=== PATIENT | female | born 1985 | race Caucasian/White ===

== ENCOUNTER 2021-05-27 23:05 | Emergency (ER) | payer BC, SELFPAY ==
[2021-05-27 23:11] VITALS: BP 167/109; PULSE 78; RESP 18; TEMP 36.4; O2SAT 98
--- NOTE | 2021-05-27 23:13 | ED.GENADUL_ITS ---
Discharge Plan Disposition Patient Disposition: HOME Condition: Good Discharge Details Clinical Impression: No problem, feared complaint unfounded Primary Care Provider: Humza Rosenberg ED Provider: Henry Perez Meds and New Rx's Prescriptions: No Action norgestimate-ethinyl estradiol [Tri-Sprintec (28)] 0.18/0.215/0.25 mg-35 mcg (28) Tablet 1 tab PO DAILY RF: 0 Discharge Instructions Additional Instructions: Your BMP (includes potassium) was normal. Follow up with PCP as planned. Discharge Data Discharge Date/Time-TO BE ENTERED AT DEPARTURE: 05/28/21 00:15 Medical Decision Making Patient very upset and crying. Apparently, whomever she spoke with tonight told her she was at risk for dying. I reassured her that this likely was just lab error and related to hemolysis. We were unable to obtain the official lab results and therefore diane a full BMP which came back completely normal which is what I would expect with an otherwise healthy 35-year-old. Patient reassured and told to follow-up with primary care as previously scheduled. HPI General Mode of arrival: ambulatory . Date/Time Provider Initiated Documentation: 05/27/21 23:08 . Limitations to Documentation: no limitations . Information obtained by: patient and RN notes reviewed . HPI Narrative: Patient presents to ED on advice of her PCP who called her this evening around 10. She has been seen yesterday for low abdominal and back pain. This is since resolved and she has been feeling fine. Laboratory studies were done yesterday. This evening she was told to come to the ED immediately because her potassium was 7.2. She has no this complaint tonight. Her pain has resolved. She has no palpitations, chest pain, shortness of breath, fever, vomiting, diarrhea. Related Data Home Medications Medication Instructions Recorded Confirmed norgestimate-ethinyl estradiol 1 tab PO DAILY 05/27/21 05/27/21 [Tri-Sprintec (28)] Allergies Allergy/AdvReac Type Severity Reaction Status Date / Time No Known Allergies Allergy Unverified 05/27/21 23:14 Review of Systems Narrative: As documented in HPI otherwise negative as below. Const: no fever, chills, weakness Resp: no cough, SOB, pleuritic pain CV: no CP, diaphoresis, edema, syncope GI: no abdominal pain, nausea, vomiting, diarrhea Neuro: no headache, numbness, focal weakness, confusion [facility] Medical History No significant past medical history Surgical History No significant past surgical history Social History Smoking/Tobacco Use Status: Never Smoking risk assessment performed?: Yes Alcohol Intake: current Substance use type: does not use Do you feel safe at home: Yes Do you feel safe in your relationship?: Yes Exam Narrative Exam Narrative: Const: WDWN female in NAD. HEENT: NC/AT. Normal facial exam. Eyes: Normal conjunctiva and sclera. Neck: Supple. Trachea midline. Lungs: Normal respiratory effort. Neuro: A+O x 3. Normal speech, mentation, gait. Cranial nerves II - XII grossly intact. No gross motor or sensory deficit. Ext: No C/C/E. Skin: Warm and dry without rash.
[2021-05-27 23:41] LABS: Anion Gap 7.5 mmol/L (3-11); BUN 11 mg/dL (7-18); CO2 27.5 mmol/L (21.0-32.0); CREATININE 0.7 mg/dL (0.55-1.02); Calcium 8.9 mg/dL (8.5-10.1); Chloride 105 mmol/L (98-107); Glucose 98 mg/dL (74-106); Potassium 3.7 mmol/L (3.5-5.1); Sodium 140 mmol/L (136-145)
== END 2021-05-28 00:15 | disposition home or self-care (01) ==
LOC: ER 05-28 00:27
PROVIDERS: Emergency Provider Emergency Medicine; PCP Family Medicine
DX: E87.5 Hyperkalemia (principal); Z71.1 Person with feared health complaint in whom no diagnosis is made
CPT/HCPCS: 80048; 99281; 99282; J2270

== ENCOUNTER 2023-05-30 03:00 | Outpatient (CLI) | payer BC, SELFPAY ==
[2023-05-30 15:52] LABS: Panorama Kit Sent via Fed Ex
[2023-05-30 15:55] LABS: Abs Immature Grans 0.07 10^3/uL (0.0-0.06); Absolute Basophil Count 0.06 10^3/uL (0.0-0.2); Absolute Eosinophil Count 0.13 10^3/uL (0.0-0.7); Absolute Monocyte Count 0.91 10^3/uL (0.1-0.8); Basophils % 0.5; Eosinophils % 1.1; HGB 12.5 g/dL (11.2-15.7); Immature Grans % 0.6; Lymphocytes % 22.8; MCH 26.4 pg (27.0-33.0); MCHC 32.1 % (32.0-36.0); MCV 83 fL (80-95); MPV 9.3 fL (8.0-11.0); Monocytes % 7.4; Neutrophils % 67.6; Platelet Count 411 10^3/uL (130-400); RBC 4.73 10^6/uL (3.93-5.22); RDW 13.2 % (11.7-14.6); RDW-SD 40.1 fL; WBC 12.26 10^3/uL (4.4-10.8)
[2023-05-30 15:57] LABS: Absolute Neutrophil Count 8.29 10^3/uL (1.2-6.7)
[2023-05-30 16:05] LABS: Glucose,1 Hr (Glucola) 97 mg/dL (80-140)
[2023-05-31 10:44] LABS: Rubella IgG Ab (UVM) Negative (See Note)
[2023-05-31 11:18] LABS: Hepatitis B Surface Ag Negative (Negative)
[2023-05-31 11:56] LABS: HIV-1/2 Ag & Ab Screen Negative (Negative)
[2023-05-31 12:03] LABS: Varicella IgG Antibody Equivocal (See Note)
[2023-05-31 12:12] LABS: Hepatitis C Ab w Rflx HCV PCR Negative (Negative)
[2023-05-31 19:33] LABS: Syphilis IgG w/Reflex Nonreactive (Nonreactive)
== END 2023-05-30 03:01 | disposition home or self-care (01) ==
PROVIDERS: PCP Family Medicine; Visit Provider Advanced Practice Midwife
DX: O09.511 Supervision of elderly primigravida, first trimester
CPT/HCPCS: 36415; 82950; 86787; 86803; 86850; 86900; 86901; 87340; 87389; 85025; 86762; 86780

== ENCOUNTER 2023-05-30 15:42 | Outpatient (REF) | payer BC, SELFPAY ==
[2023-05-30 18:36] LABS: *AMPHETAMINES SCREEN URINE Negative (Negative); *BARBITURATES SCREEN URINE Negative (Negative); *BENZODIAZEPINES SCREEN URINE Negative (Negative); Cannabinoids THC Negative (Negative); Cocaine Screen,Urine Negative (Negative); METHADONE URINE SCREEN Negative (Negative); OPIATES URINE SCREEN Negative (Negative)
[2023-05-30 18:42] LABS: Tricyclic Antidepressants Negative (Negative)
[2023-06-01 13:34] LABS: Chlamydia Result Negative (Negative); GC Result Negative (Negative)
[2023-06-06 12:19] LABS: Buprenorphine Negative ng/mL (Cutoff: 5.0); Norbuprenorphine Negative ng/mL (Cutoff: 2.5)
== END 2023-05-30 15:43 | disposition home or self-care (01) ==
LOC: LBN 15:42
PROVIDERS: PCP Family Medicine; Visit Provider Advanced Practice Midwife
DX: Z34.91 Encounter for supervision of normal pregnancy, unspecified, first trimester
CPT/HCPCS: 80307; 80348; 87491; 87591; 87086

== ENCOUNTER 2023-07-21 16:31 | Outpatient (REF) | payer BC, SELFPAY ==
[2023-07-21 16:54] LABS: Bilirubin Negative (Negative); Blood Small (Negative); Clarity Clear (Clear); Glucose Negative (Negative); Ketones Negative (Negative); Leukocyte Esterase Negative (Negative); Nitrite Negative (Negative); Specific Gravity 1.015 (1.005-1.025); Urobilinogen 0.2 mg/dL (Up to 0.2)
[2023-07-21 17:10] LABS: Bacteria Negative HPF (Negative); C & S Indicated? C&S Done As Ordered; Crystals Negative HPF (Negative); Epithelial Cells Rare HPF (Negative); Mucus Negative (Negative); WBC 0-2 HPF (0-5)
== END 2023-07-21 16:32 | disposition home or self-care (01) ==
LOC: LBN 16:31
PROVIDERS: PCP Family Medicine; Visit Provider Advanced Practice Midwife
DX: R31.9 Hematuria, unspecified (principal)
CPT/HCPCS: 81003; 81015; 87086

== ENCOUNTER 2023-09-11 17:08 | Outpatient (REF) | payer BC, SELFPAY | END 2023-09-11 17:09 | disposition home or self-care (01) | LOC: LBN 17:08 | PROVIDERS: PCP Family Medicine; Visit Provider Obstetrics & Gynecology Gynecology | DX: N20.0 Calculus of kidney (principal); R31.9 Hematuria, unspecified | CPT/HCPCS: 87077; 82365; 87086; 87186 ==

== ENCOUNTER 2023-09-12 23:36 | Emergency (ER) | payer BC, SELFPAY ==
[2023-09-12 23:45] VITALS: BP 150/80; PULSE 140; RESP 20; TEMP 39.4; O2SAT 97
[2023-09-13] MEDS: Cefepime 2 GM VIAL (00:09)
[2023-09-13] MEDS: Normal Saline 100 ML 200 ML (00:10)
[2023-09-13] MEDS: Normal Saline 1,000 ML 1000 ML IV (00:11)
--- NOTE | 2023-09-13 00:15 | ED.GENADUL_ITS ---
HPI General Date/Time Provider Initiated Documentation: 09/12/23 23:46 . HPI Narrative: This is a very pleasant G1, P0 37-year-old female who is currently 26 weeks who presents today for evaluation of fever and right flank pain. Patient states that 3 days ago on Monday she developed sudden severe right flank pain, she had a urine filter at home secondary to suspected previous kidney stones. She urinated and collected multiple small stones. Flank pain improved but persisted. She was seen by obstetrics on Monday and she was noted to be quite tired and fatigued at that time but otherwise the urinalysis was negative for evidence of infection and it was sent for culture and she appropriately went home with close monitoring. 12 hours ago on Monday her symptoms worsened, she developed fever, chills, and rigors. Right flank pain continued. She was started on Keflex for which she has taken 2 doses, and she was scheduled for close follow-up later today. This evening she presents as she is feeling notably worse, very fatigued, continues to have worsening chills and rigors and worsening right-sided flank pain. She denies any vomiting or diarrhea. She denies a severe headache or neck pain. She denies any cough, ear pain, sore throat. She denies any other complaints at this time. No other modifying factors. Related Data Home Medications Medication Instructions Recorded Confirmed vitamins no.154-ferrous tab PO 04/27/23 09/12/23 fumarate 27 mg-folic acid 1 mg tablet aspirin 81 mg chewable tablet 81 mg PO DAILY #60 tabs 05/30/23 09/12/23 cephalexin 500 mg capsule 500 mg PO TID #15 caps 09/12/23 09/12/23 Previous Rx's Medication Instructions Recorded aspirin 81 mg chewable tablet 81 mg PO DAILY #60 tabs 05/30/23 cephalexin 500 mg capsule 500 mg PO TID #15 caps 09/12/23 Allergies Allergy/AdvReac Type Severity Reaction Status Date / Time lobster AdvReac Other (See Uncoded 09/11/23 14:44 Comment) General Stated Complaint: Fever QUINN: 3 Review of Systems All systems reviewed & are unremarkable except as noted in HPI and below Exam Narrative Exam Narrative: 1.Const: Well-nourished, Well-developed, appearing stated age 2.Eyes: PERRL, no conjunctival injection, and symmetrical lids. 3.ENT: Atraumatic external nose and ears. Dry MM. Neck: Symmetric, trachea midline, No thyromegaly. No nuchal rigidity or significant neck tenderness 4.CVS: +S1/S2, No murmurs or gallops. Peripheral pulses 2+ and equal in all extremities. Brisk capillary refill in all extremities. 5.RESP: Unlabored respiratory effort. Clear to auscultation bilaterally. No wheezes rales or rhonchi 6.GI: Soft, appropriately gravid. Moderate right CVA tenderness. No right lower abdominal tenderness. Right flank tenderness is noted. No left-sided abdominal tenderness. 7.MSK: Normocephalic/Atraumatic, Extremities w/o deformity or ttp No cyanosis or clubbing, Normal movement of all extremities 8.Skin: Warm, Dry. No rashes or lesions. 9.Neuro: office coordinator receptionist II-XII grossly intact. Sensation grossly intact, no focal neurologic deficits. 10.Psych: (AAO) x3. Appropriate mood and affect Course Vital Signs Vital signs: Vital Signs Temperature 39.4 C H 09/12/23 23:45 Pulse 140 H 09/12/23 23:45 Respiratory Rate 20 09/12/23 23:45 Blood Pressure 150/80 H 09/12/23 23:45 Pulse Oximetry 97 09/12/23 23:45 Temperature 39.4 C H 09/12/23 23:45 Temperature Source Oral 09/12/23 23:45 Pulse 140 H 09/12/23 23:45 Respiratory Rate 20 09/12/23 23:45 Blood Pressure 150/80 H 09/12/23 23:45 Pulse Oximetry 97 09/12/23 23:45 Oxygen Delivery Method Room Air 09/12/23 23:45 Oxygen Flow Rate 0 09/12/23 23:45 Pain Level 0 09/12/23 23:45 Lab/Test Results Lab/Test Results: 09/13/23 00:10 Blood Blood Culture - Pending 09/13/23 00:04 Blood Blood Culture - Pending Medical Decision Making This is a very pleasant G1, P0 37-year-old female who is currently 26 weeks who presents today for evaluation of fever and right flank pain. Patient states that 3 days ago on Monday she developed sudden severe right flank pain, she had a urine filter at home secondary to suspected previous kidney stones. She urinated and collected multiple small stones. Flank pain improved but persisted. She was seen by obstetrics on Monday and she was noted to be quite tired and fatigued at that time but otherwise the urinalysis was negative for evidence of infection and it was sent for culture and she appropriately went home with close monitoring. 12 hours ago on Monday her symptoms worsened, she developed fever, chills, and rigors. Right flank pain continued. She was started on Keflex for which she has taken 2 doses, and she was scheduled for close follow-up later today. This evening she presents as she is feeling notably worse, very fatigued, continues to have worsening chills and rigors and worsening right-sided flank pain. She denies any vomiting or diarrhea. She denies a severe headache or neck pain. She denies any cough, ear pain, sore throat. She denies any other complaints at this time. No other modifying factors. Exam demonstrates notable right-sided CVA tenderness. Heart rate initially in the 160s, now currently in the 140s, blood pressure demonstrates an elevated pressure at 150/80, we will reassess this. She does not fit the expected clinical picture of help syndrome or eclampsia. She is febrile. High concern for potential septic stone. Appendicitis less likely but on the differential. Patient will be rehydrated with fluid bolus starting with a liter, we will start the patient on cefepime right now. We will give Ofirmev for fever control. We did attempt to reach out to the urologist at the facility here, but it is midnight and he is not currently reachable by phone. With the high potential concern for septic stone or pyelonephritis, we will reach out to [facility] for potential transfer for emergent ultrasonography, and potential need for urologic intervention. 12:51 AM Blood pressure has normalized. Heart rate improving. No transaminitis. Patient's laboratory workup has returned, she has a 17 white count, notable left shift. Lactate normal. Review of her urine culture shows greater than 100,000 gram-positive CFU's contacted [facility] and spoke with urology Dr. Steen, he recommends transfer down for emergent ultrasound and potential intervention. Discussed the case with Dr. Wetzel of the emergency department he agrees and accepts patient for transfer. Urology does recommend transitioning to Zosyn for better gram-positive coverage. Cefepime has finished, Zosyn started. Limited bedside POCUS demonstrates a right kidney with a length of 13 cm and a width of 6 cm, left kidney is measured at 12/4 cm respectively. Right kidney does seem to demonstrate some mild evidence of hydronephrosis. Discussed the plan, scenario, and need for transfer with the patient, patient agrees. I have extensively reviewed the treatment plan with the patient. I have addressed all patient concerns at this time. I have also discussed the plan with the admitting physician and they agree with the current assessment and plan and have agreed to assume responsibility for the patient. All parties demonstrate verbal understanding and agreement with our assessment and plan at this time. The documentation in this chart was dictated using [employer] dictation software. Please excuse any dictation errors. At time of transfer the patient was reassessed and continued to demonstrate No signs of acute respiratory distress requiring intubation, hemodynamic instability requiring pressor support, or rapidly declining mental status. Additionally laboratory workup came back and did show urinalysis with greater than 50 WBCs, moderate leuk esterase, procalcitonin elevated at 0.2. Renal function normal. Potassium slightly low at 3.3. Lactate was 1.2. Quality:[facility] Health Related Social Needs: No Data to Display Critical Care Time Critical Care Time Critical Care Time: Yes Total Critical Care Time: 60 Attestation: Upon my evaluation, this patient had a high probability of imminent or life- threatening deterioration, which required my direct attention, intervention, and personal management. I have personally provided 60 minutes of critical care time exclusive of time spent on separately billable procedures. Time includes review of laboratory data, radiology results, discussion with consultants, and monitoring for potential decompensation. Interventions were performed as documented. [facility] All Active Problems (Updated 09/13/23 @ 01:33 by Shakir Jackson DO) Pyelonephritis (Acute) Kidney stone (Chronic) Sepsis (Acute) Fever (Acute) 09/12/23. 24hrs after passing kidney stones. UCx pending Nephrolithiasis (Chronic) 09/11/23. Stones sent for analysis. Hematuria (Acute) Maternal varicella, non-immune (Acute) Elderly primigravida (Acute) (Acute) Surgical History No significant past surgical history Social History Smoking/Tobacco Use Status: Never Smoking risk assessment performed?: Yes Alcohol Intake: current Substance use type: does not use Housing: house Do you feel safe at home: Yes Do you feel safe in your relationship?: Yes History History 1 Para 0 Hx # Term Pregnancies 0 Multiple births 0 Hx # Pregnancies 0 Ectopic pregnancies 0 AB induced 0 Hx Number of Living Children 0 AB spontaneous 0 Discharge Plan Disposition Patient Disposition: Transfer-Acute Inpatient Care Specific Acute Inpt Facility: [facility] Discharge Details Chief Complaint: Fever Clinical Impression: Sepsis, Kidney stone, Pyelonephritis Primary Care Provider: Humza Rosenberg ED Provider: Shakir Jackson Home Meds and New Rx's Prescriptions: No Action cephalexin 500 mg capsule 500 mg PO TID Qty: 15 0RF PNV no.154-iron fumarate-folic 27 mg iron- 1 mg tablet PO aspirin 81 mg tablet,chewable 81 mg PO DAILY Qty: 60 4RF Rx Instructions: 1 tab daily alternating with 2 tabs every other day Discharge Instructions Referrals: Humza Rosenberg [Primary Care Provider] - Lillian Mercado MD [ [facility] STAFF PHYSICIAN] - POCUS Exam (ED) Limited Retroperitoneal(Renal)Exam DATE OF EXAM: 09/13/23 TIME OF EXAM: 00:53 PROVIDER THAT PERFORMED THE STUDY: Shakir Jackson IS THIS A REPEAT EXAM DURING THIS ENCOUNTER: No REASON FOR EXAM: Back pain/right side VISUALIZED STRUCTURES: Left kidney, Right kidney, Renal pelvis,left side and Renal pelvis, right side PERTINENT FINDINGS/IMPRESSION: Hydronephrosis present right side Exam complete
[2023-09-13 00:19] LABS: Lactate 1.2 mmol/L (0.6-1.4)
[2023-09-13 00:23] LABS: Abs Immature Grans 0.16 10^3/uL (0.0-0.06); Absolute Lymphocyte Count 1.05 10^3/uL (1.2-3.4); Absolute Monocyte Count 0.96 10^3/uL (0.1-0.8); Basophils % 0.2; HCT 31.7 % (36.0-46.0); HGB 10.7 g/dL (11.2-15.7); Immature Grans % 0.9; Lymphocytes % 6.1; MCH 27.5 pg (27.0-33.0); MCHC 33.8 % (32.0-36.0); MCV 82 fL (80-95); MPV 9.3 fL (8.0-11.0); Monocytes % 5.6; Neutrophils % 87.2; Platelet Count 287 10^3/uL (130-400); RBC 3.89 10^6/uL (3.93-5.22); RDW 13.3 % (11.7-14.6); RDW-SD 39.5 fL; WBC 17.14 10^3/uL (4.4-10.8)
[2023-09-13 00:25] LABS: Absolute Basophil Count 0.03 10^3/uL (0.0-0.2); Absolute Neutrophil Count 14.95 10^3/uL (1.2-6.7)
[2023-09-13 00:36] LABS: ALT 25 U/L (14-59); AST 16 U/L (15-37); Albumin 2.7 g/dL (3.4-5.0); Alkaline Phosphatase 68 U/L (46-116); Anion Gap 13.9 mmol/L (3-11); BUN 4 mg/dL (7-18); Bilirubin, Total 0.3 mg/dL (0.2-1.0); CO2 21.1 mmol/L (21.0-32.0); CREATININE 0.7 mg/dL (0.55-1.02); Calcium 8.7 mg/dL (8.5-10.1); Chloride 98 mmol/L (98-107); Estimated GFR 115.59 (mL/min/1.73m2); Glucose 147 mg/dL (74-106); Potassium 3.3 mmol/L (3.5-5.1); Sodium 133 mmol/L (136-145); Total Protein 7.5 g/dL (6.4-8.2)
[2023-09-13] MEDS: PIPERACILLIN/TAZO 4.5 GM in Normal Saline 100 ML IVPB (00:40)
[2023-09-13] MEDS: ACETAMINOPHEN 1,000 MG/100 ML BTL 400 MG IVPB (00:40)
[2023-09-13 00:44] VITALS: BP 123/69; PULSE 129; RESP 18; TEMP 39.4; O2SAT 98
--- NOTE | 2023-09-13 00:47 | NUR.NOTE ---
Nursing Note:pt to the ED,+26 wks preg. pt recently passed a few kidney stones and was placed on abx, today she felt worse. High fevers and chills. pt arrived a+ox4, labs including urine sent. pt IV established. X@ bld cultures and x2 IVabx infused. pt to be transferred to [facility]
[2023-09-13 00:58] LABS: Bilirubin Negative (Negative); Blood Trace-intact (Negative); Clarity Sl Cloudy (Clear); Glucose Negative (Negative); Ketones Trace mg/dL (Negative); Leukocyte Esterase Moderate (Negative); Nitrite Negative (Negative); Urobilinogen 0.2 mg/dL (Up to 0.2); pH 6.5 (5-8)
[2023-09-13 01:00] LABS: COVID-19 PCR Negative (Negative); Influenza A PCR Negative (Negative); Influenza B PCR Negative (Negative); RSV PCR Negative (Negative)
[2023-09-13 01:02] LABS: Source Nasopharynx
[2023-09-13 01:04] LABS: Bacteria Moderate HPF (Negative); Crystals Negative HPF (Negative); Epithelial Cells Few HPF (Negative); Mucus Trace (Negative); Other Cells Few Transitional (Negative); WBC >50 HPF (0-5)
[2023-09-13 01:05] LABS: C & S Indicated? C&S Done As Ordered
[2023-09-13 01:06] LABS: Procalcitonin 0.2 ng/mL
[2023-09-13 01:15] VITALS: BP 120/62; PULSE 122; RESP 18; TEMP 37.9; O2SAT 100
[2023-09-13 01:35] LABS: HCG Quant, Pregnancy 18519 mIU/mL (1-3)
--- NOTE | 2023-09-13 12:21 | NUR.NOTE ---
[facility] called for urine culture results; they are not done. Nursing Note:
== END 2023-09-13 01:36 | disposition short-term general hospital (02) ==
PROVIDERS: Emergency Provider Student in an Organized Health Care Education/Training Program; PCP Family Medicine
DX: N20.0 Calculus of kidney (principal); O23.02 Infections of kidney in pregnancy, second trimester; Z3A.26 26 weeks gestation of pregnancy; Z11.52 Encounter for screening for COVID-19; Z79.82 Long term (current) use of aspirin
CPT/HCPCS: 76775; 80053; 84145; 86850; 86900; 86901; 87040; 87637; 96365; 96367; 96375; 99284; 81003; 81015; 83605; 84702; 85025; 87086; J0131; J0692; J2543

== ENCOUNTER 2023-09-25 05:01 | Outpatient (CLI) | payer BC, SELFPAY ==
[2023-09-25 09:17] LABS: HCT 34.1 % (36.0-46.0); HGB 11.3 g/dL (11.2-15.7); MCH 27.4 pg (27.0-33.0); MCHC 33.1 % (32.0-36.0); MCV 83 fL (80-95); MPV 8.9 fL (8.0-11.0); Platelet Count 431 10^3/uL (130-400); RBC 4.12 10^6/uL (3.93-5.22); RDW 13.4 % (11.7-14.6); RDW-SD 40.3 fL; WBC 9.41 10^3/uL (4.4-10.8)
[2023-09-25 09:28] LABS: Glucose,1 Hr (Glucola) 160 mg/dL (80-140)
== END 2023-09-25 05:02 | disposition home or self-care (01) ==
LOC: LBO 05:02
PROVIDERS: PCP Family Medicine; Visit Provider Obstetrics & Gynecology Gynecology
DX: Z34.93 Encounter for supervision of normal pregnancy, unspecified, third trimester (principal)
CPT/HCPCS: 36415; 82950; 85027

== ENCOUNTER 2023-10-06 02:32 | Outpatient (CLI) | payer BC, SELFPAY ==
[2023-10-06 09:33] LABS: Glucose 1 Hour 175 mg/dL
[2023-10-06 11:40] LABS: Glucose 3 Hour 102 mg/dL
== END 2023-10-06 02:33 | disposition home or self-care (01) ==
LOC: LBO 02:32
PROVIDERS: PCP Family Medicine; Visit Provider Obstetrics & Gynecology Gynecology
DX: R73.09 Other abnormal glucose (principal)
CPT/HCPCS: 36415; 82951

== ENCOUNTER 2023-11-10 16:24 | Outpatient (CLI) | payer BC, SELFPAY ==
[2023-11-10 16:50] VITALS: BP 120/71; PULSE 68
[2023-11-10 16:59] VITALS: BP 120/71; PULSE 68
--- NOTE | 2023-11-10 17:15 | W.OBNST ---
Date of service: 11/10/23 Time of Service: 16:30 NST Evaluation Reason for NST Reasons for Nonstress Test: OTHER, SEE COMMENT Reason for NST Other: Well-being, sent over from office Gestational Age Gestational Age in Weeks and Days: 34 Weeks and 6Days Test and Monitor Explained Test/Monitor Explained: Test Explained, Monitor Explained and Patient Verbalized Understanding Vital Signs Blood Pressure: 120/71 Pulse: 68 Urine Results Urine Protein: Negative Urine Ketones: Negative Urine Glucose: Negative Urine Blood: Negative NST Information Date on Monitor: 11/10/23 Time on Monitor: 16:32 Date off Monitor: 11/10/23 Time off Monitor: 16:53 Total Time on Monitor: 21 NST Interventions: None Contraction Frequency: None NST Evaluation Patient States Movement: Present FHR Baseline: 125 Variability: Moderate 6-25 bpm Accelerations: 15x15 Decelerations: None NST Results: Reactive Note Ultrasound Done: N/A. NST Note NST Reviewed and Verified by: Shira Fay
[2023-11-10 17:16] VITALS: BP 120/71; PULSE 68
== END 2023-11-10 16:55 ==
LOC: BCD 16:25 → OBS 16:27
PROVIDERS: PCP Family Medicine; Visit Provider Obstetrics & Gynecology
DX: O36.8331 Maternal care for abnormalities of the fetal heart rate or rhythm, third trimester, fetus 1 (principal); Z3A.34 34 weeks gestation of pregnancy
CPT/HCPCS: 59025

== ENCOUNTER 2023-11-22 18:55 | Outpatient (REF) | payer BC, SELFPAY | END 2023-11-22 18:56 | disposition home or self-care (01) | LOC: LBN 18:55 | PROVIDERS: PCP Family Medicine; Visit Provider Obstetrics & Gynecology | DX: Z34.93 Encounter for supervision of normal pregnancy, unspecified, third trimester (principal); Z3A.36 36 weeks gestation of pregnancy; Z36.85 Encounter for antenatal screening for Streptococcus B | CPT/HCPCS: 87081 ==

== ENCOUNTER 2023-12-18 20:00 | Inpatient (IN) | payer BC, SELFPAY ==
[2023-12-18 20:29] VITALS: BP 126/70; PULSE 80; RESP 16; TEMP 37.5
[2023-12-18 21:03] LABS: HCT 35.5 % (36.0-46.0); HGB 11.7 g/dL (11.2-15.7); MCH 27.7 pg (27.0-33.0); MCV 84 fL (80-95); Platelet Count 276 10^3/uL (130-400); RBC 4.23 10^6/uL (3.93-5.22); RDW-SD 43.1 fL; WBC 10.76 10^3/uL (4.4-10.8)
[2023-12-18] MEDS: miSOPROStol 25 MCG TAB PO (21:52)
--- NOTE | 2023-12-18 21:55 | HPE_ITS ---
Date of service: 12/18/23 Time of Service: 21:55 Assessment and Plan Assessment and plan (1) Encounter for induction of labor: Status: Acute Assessment and plan: Admission for Misoprostol cervical ripening. (2) Nephrolithiasis: Status: Chronic (3) Elderly primigravida: Status: Acute Qualifiers: Trimester: third trimester Qualified Code(s): O09.513 - Supervision of elderly primigravida, third trimester OB-HPI Labor/Delivery History of Present Illness Reason for Visit: iup 40w2d EGA Chief Complaint: Scheduled Induction of Labor Indication for Induction: Other (AMA). KEILA Calculator Estimated Delivery Date Method Current WG Current Estimate 12/16/23 Ultrasound #1 40w 2d Other Estimates 12/22/23 LMP (Certain) 39w 3d History of Present Expected Delivery Route/Plan - (hx stones & pylo) FOB/ - Amadeo Monreal (first child) Specific Issues/Plan 1. AMA: low dose ASA @ 12 wks, [facility] level 2 scan w/MFM consult- normal US - cfDNA drawn- neg, CF/SMA declined - Early glucola = 97 2. Varicella non immune- discuss with Vandana, offer vaccine post partum____ 3. Nephrolithiasis 09/11/23. Collected stones: 100% Calcium Oxalate. Pyelonephritis in . Hospitalized at [facility] x 3 days. - Daily Macrobid throughout the remainder of her . Narrative: Pt is a 38yo female who presents for IOL at term. She was counseled regarding Misoprostol for cervical ripening followed by augmentation of labor with Oxytocin. Pt has had total of 13 visits. S=D. 1st trimester BP122/83, 3rd trimester BP 188/79. Rh+. Informed Consent Informed Consent: Augmentation of Labor, Induction of Labor, Regional Anesthesia and Risk,Benefits,Alternatives Discussed Review of Systems Narrative: Occasional contractions. No increased vaginal discharge. Good movement. All systems reviewed & are unremarkable except as noted in HPI and below PFSH All Active Problems (Updated 12/18/23 @ 22:28 by Lillian Mercado MD) Encounter for induction of labor (Acute) Elevated glucose level (Acute) Fever (Acute) 09/12/23. 24hrs after passing kidney stones. UCx pending Nephrolithiasis (Chronic) 09/11/23. Stones sent for analysis. Hematuria (Acute) Maternal varicella, non-immune (Acute) Elderly primigravida (Acute) (Acute) Surgical History No significant past surgical history Social History Smoking/Tobacco Use Status: Never Smoking risk assessment performed?: Yes Alcohol Intake: current Drug use: Never Substance use type: does not use Housing: house Do you feel safe at home: Yes Do you feel safe in your relationship?: Yes History History 1 Para 0 Hx # Term Pregnancies 0 Multiple births 0 Hx # Pregnancies 0 Ectopic pregnancies 0 AB induced 0 Hx Number of Living Children 0 AB spontaneous 0 Meds Allergies and Home Medications Allergies Allergy/AdvReac Type Severity Reaction Status Date / Time lobster AdvReac Other (See Uncoded 12/07/23 10:55 Comment) Home Medications Medication Instructions Recorded Confirmed Type aspirin 81 mg chewable tablet 81 mg PO DAILY #60 tabs 05/30/23 12/18/23 Rx ferrous sulfate 325 mg (65 mg 325 mg PO DAILY 09/25/23 12/18/23 History iron) tablet (Iron (ferrous sulfate)) nitrofurantoin 100 mg PO BID 09/25/23 12/18/23 History monohydrate/macrocrystals 100 mg capsule (Macrobid) nitrofurantoin 100 mg PO DAILY #60 caps 09/25/23 12/18/23 Rx monohydrate/macrocrystals 100 mg capsule (Macrobid) lactobacillus combination no.4 3 3,000 mmu cells PO DAILY 11/10/23 12/18/23 History billion cell capsule (Probiotic) vits no.130-ferrous fum 1 tab PO DAILY #90 tabs 11/22/23 12/18/23 Rx 27 mg iron-folic acid 800 mcg tablet ( Vitamin) Exam Physical Exam Vital signs: Temp Pulse Resp BP 99.5 F 80 16 126/70 12/18/23 20:29 12/18/23 20:29 12/18/23 20:29 12/18/23 20:29 Vital Signs Reviewed: Yes Constitutional Constitutional: no acute distress Detailed Labor and Delivery Exam Dilation: 1 Effacement (%): 75 station: 0 Cervix position: posterior Consistency: soft Hinds Score: Cervical Points Exam 0 1 2 3 Dilation Closed 1-2cm 3-4 cm 5-6cm Effacement 0-30% 40-50% 60-70% 80% Consistency Firm Medium Soft Station -3 -2 -1,0 +1,+2 Position Posterior Mid Anterior HINDS Score(Cervical Ripeness Score): 8 Amniotic Membrane Status: Intact Monitor Mode: External Contraction Frequency(min): occasional Contraction Duration(sec): 40 Contraction Intensity: Mild Fetus A Heart Rate Baseline: 140 Monitor Accelerations: 15 X 15 Monitor Decelerations: None Variability: Moderate (6-25 BPM) Presentation: Cephalic Categories: Category I Est. Weight: 3300 lb Results Results Group Beta Strep: Negative Blood Type: A+ Rubella Status: Immune Varicella Immunity: Nonimmune Abnormal Lab Findings: Abnormal Labs 12/18/23 20:52 Hct 35.5 L Risk Assessment Risk for Shoulder Dystocia Historical/Initial OB: NEGATIVE FOR: Pelvic Abnormality, Pre- BMI>30, Previous Shoulder Dystocia or Previous Macrosomia Increased Risk?: No Risk for Pre-Eclampsia Daily Dose ASA Indicated: Yes Date Initiated/Initials: start @ 12 wks, JK Yes, if one or more: NEGATIVE FOR: Hx Pre-E/Gest HTN, Chronic HTN, Multiple Gestation, Pre-gestational DM, Renal Disease, Systemic Lupus or APA Syndrome Yes, if 2 or more: POSITIVE FOR: Nulliparity and Age>= 35 yrs; NEGATIVE FOR: >10yr btwn pregnancies, BMI>30, ethinicty, Mother/Sister w/ Pre-E or Previous IUGR Risk for Post- Hemorrhage Initial: NEGATIVE FOR: Multiple Gestation, Previous PPH, Known Clotting Deficiency, Grand Multiparity or Anticoagulation At Risk?: No Risks Reviewed Risks Reviewed Upon Admission: Yes
[2023-12-18 22:16] VITALS: BP 115/75; PULSE 66; TEMP 36.6
[2023-12-19] VITALS (17 sets, daily range): BP systolic 109–134; BP diastolic 57–83; PULSE 62–76; RESP 16–18; TEMP 36.4–36.9; O2SAT 97–99
[2023-12-19] MEDS: miSOPROStol 25 MCG TAB PO ×2 (02:09→06:22)
--- NOTE | 2023-12-19 09:35 | W.PM.OBNL1 ---
Date of service: 12/19/23 Time of Service: 09:35 Informed Consent Informed Consent: Augmentation of Labor, Induction of Labor, Regional Anesthesia and Risk,Benefits,Alternatives Discussed Pelvic Exam Dilation: 2 Effacement (%): 75 station: 0 Cervix Position: posterior Consistency: soft Vaginal Exam Presentation: Cephalic Contractions Monitor Mode: External Contraction Frequency(min): 3 Contraction Duration(sec): 60 Intensity: Mild Fetus A Monitor: External (US) Heart Rate Baseline: 140 Presentation: Cephalic Variability: Moderate (6-25 BPM) Categories: Category I FHR Rhythm: Regular Characteristics: Normal Accelerations: 15 X 15 Decelerations: None Amniotic Membrane Status: Intact Assessment and Plan Assessment and plan (1) Encounter for induction of labor: Status: Acute Assessment and plan: will begin Oxytocin infusion. Objective Abnormal lab results 12/18/23 Range/Units 20:52 Hct 35.5 L (36.0-46.0) % Temp Pulse Resp BP 97.9 F 72 16 125/80 12/19/23 06:03 12/19/23 07:17 12/18/23 20:29 12/19/23 07:17 Laboratory Results WBC 10.76 10^3/uL (4.4-10.8) 12/18/23 20:52 RBC 4.23 10^6/uL (3.93-5.22) 12/18/23 20:52 Hgb 11.7 g/dL (11.2-15.7) 12/18/23 20:52 Hct 35.5 % (36.0-46.0) L 12/18/23 20:52 MCV 84 fL (80-95) 12/18/23 20:52 MCH 27.7 pg (27.0-33.0) 12/18/23 20:52 MCHC 33.0 % (32.0-36.0) 12/18/23 20:52 RDW 14.0 % (11.7-14.6) 12/18/23 20:52 Plt Count 276 10^3/uL (130-400) 12/18/23 20:52 MPV 10.0 fL (8.0-11.0) 12/18/23 20:52 ABO/Rh A Positive 12/18/23 20:52 Antibody Screen NEGATIVE 12/18/23 20:52 Results Hemoglobin/Hematocrit: Hgb 11.7 g/dL (11.2-15.7) 12/18/23 20:52 Hct 35.5 % (36.0-46.0) L 12/18/23 20:52 Abnormal Lab Findings: Abnormal Labs 12/18/23 20:52 Hct 35.5 L
[2023-12-19] MEDS: Lactated Ringers 1,000 ML 125 ML IV ×2 (09:44→17:58)
[2023-12-19] MEDS: Oxytocin/Normal Saline 30 UNIT/500 ML BAG 2 UNITS IV (09:48)
[2023-12-19] MEDS: Normal Saline Flush 10 ML SYR IVP ×2 (11:40→22:06)
--- NOTE | 2023-12-19 14:36 | W.PM.OBNL1 ---
Date of service: 12/19/23 Time of Service: 13:30 Informed Consent Informed Consent: Augmentation of Labor, Induction of Labor, Regional Anesthesia and Risk,Benefits,Alternatives Discussed Pelvic Exam Dilation: 2 Effacement (%): 90 station: -1 Position: OP Comments: Attempted AROM but no obvious fluid. Contractions Contraction Frequency(min): 2-4 Fetus A Heart Rate Baseline: 140 Presentation: Vertex Variability: Moderate (6-25 BPM) Categories: Category I FHR Rhythm: Regular Accelerations: 15 X 15 Decelerations: None Assessment and Plan Assessment and plan (1) Encounter for induction of labor: Status: Acute Assessment and plan: status is reassuring. Suspect OP presentation - will work on positioning. Will continue with pitocin induction. Will monitor for signs of ROM and try again later if no evidence. Objective Abnormal lab results 12/18/23 Range/Units 20:52 Hct 35.5 L (36.0-46.0) % Temp Pulse Resp BP Pulse Ox 98.2 F 67 16 128/83 99 12/19/23 14:04 12/19/23 14:04 12/19/23 14:04 12/19/23 14:04 12/19/23 14:04 Laboratory Results WBC 10.76 10^3/uL (4.4-10.8) 12/18/23 20:52 RBC 4.23 10^6/uL (3.93-5.22) 12/18/23 20:52 Hgb 11.7 g/dL (11.2-15.7) 12/18/23 20:52 Hct 35.5 % (36.0-46.0) L 12/18/23 20:52 MCV 84 fL (80-95) 12/18/23 20:52 MCH 27.7 pg (27.0-33.0) 12/18/23 20:52 MCHC 33.0 % (32.0-36.0) 12/18/23 20:52 RDW 14.0 % (11.7-14.6) 12/18/23 20:52 Plt Count 276 10^3/uL (130-400) 12/18/23 20:52 MPV 10.0 fL (8.0-11.0) 12/18/23 20:52 ABO/Rh A Positive 12/18/23 20:52 Antibody Screen NEGATIVE 12/18/23 20:52 Vital Signs Reviewed: Yes Subjective Interval history since last seen: Pt mildly uncomfortable with contractions Results Hemoglobin/Hematocrit: Hgb 11.7 g/dL (11.2-15.7) 12/18/23 20:52 Hct 35.5 % (36.0-46.0) L 12/18/23 20:52 Abnormal Lab Findings: Abnormal Labs 12/18/23 20:52 Hct 35.5 L
--- NOTE | 2023-12-19 17:14 | W.PM.OBNL1 ---
Date of service: 12/19/23 Time of Service: 17:14 Informed Consent Informed Consent: Augmentation of Labor, Induction of Labor, Regional Anesthesia and Risk,Benefits,Alternatives Discussed Pelvic Exam Dilation: 3 Effacement (%): 90 station: 0 Cervix Position: anterior Consistency: soft Vaginal Exam Presentation: Vertex Comments: AROM - blood tinged fluid Contractions Monitor Mode: External Contraction Frequency(min): q2-3 Fetus A Monitor: Telemetry Heart Rate Baseline: 130 Variability: Moderate (6-25 BPM) Categories: Category I Accelerations: 15 X 15 Decelerations: None Amniotic Membrane Status: Ruptured Rupture Method: Artifical Amniotic Fluid: [place] Tinged Date of Membrane Rupture: 12/19/23 Time of Membrane Rupture: 17:00 Assessment and Plan Assessment and plan (1) Encounter for induction of labor: Status: Acute Assessment and plan: Pt progressing. AROM successful. Discussed what to expect going forward. status reassuring. Objective Abnormal lab results 12/18/23 Range/Units 20:52 Hct 35.5 L (36.0-46.0) % Temp Pulse Resp BP Pulse Ox 97.7 F 67 16 128/83 99 12/19/23 16:11 12/19/23 14:04 12/19/23 14:04 12/19/23 14:04 12/19/23 14:04 Laboratory Results WBC 10.76 10^3/uL (4.4-10.8) 12/18/23 20:52 RBC 4.23 10^6/uL (3.93-5.22) 12/18/23 20:52 Hgb 11.7 g/dL (11.2-15.7) 12/18/23 20:52 Hct 35.5 % (36.0-46.0) L 12/18/23 20:52 MCV 84 fL (80-95) 12/18/23 20:52 MCH 27.7 pg (27.0-33.0) 12/18/23 20:52 MCHC 33.0 % (32.0-36.0) 12/18/23 20:52 RDW 14.0 % (11.7-14.6) 12/18/23 20:52 Plt Count 276 10^3/uL (130-400) 12/18/23 20:52 MPV 10.0 fL (8.0-11.0) 12/18/23 20:52 ABO/Rh A Positive 12/18/23 20:52 Antibody Screen NEGATIVE 12/18/23 20:52 Vital Signs Reviewed: Yes Subjective Interval history since last seen: Pt is more uncomfortable with contractions. No e/o leaking fluid. minimal bloody show and some mucus Pitocin at 16 Results Hemoglobin/Hematocrit: Hgb 11.7 g/dL (11.2-15.7) 12/18/23 20:52 Hct 35.5 % (36.0-46.0) L 12/18/23 20:52 Abnormal Lab Findings: Abnormal Labs 12/18/23 20:52 Hct 35.5 L
--- NOTE | 2023-12-19 18:12 | W.PM.OBNL1 ---
Date of service: 12/19/23 Time of Service: 18:00 Informed Consent Informed Consent: Augmentation of Labor, Induction of Labor, Regional Anesthesia and Risk,Benefits,Alternatives Discussed Pelvic Exam Dilation: 4 Effacement (%): 100 station: +1 Cervix Position: anterior Consistency: soft Contractions Contraction Frequency(min): q1.5-2min Fetus A Heart Rate Baseline: 130 Presentation: Vertex Variability: Moderate (6-25 BPM) Categories: Category I Accelerations: 15 X 15 Decelerations: None Amniotic Membrane Status: Ruptured Assessment and Plan Assessment and plan (1) Encounter for induction of labor: Status: Acute Assessment and plan: Progressing well. Continue pitocin but decrease to 4. May decide to try nitrous. Objective Abnormal lab results 12/18/23 Range/Units 20:52 Hct 35.5 L (36.0-46.0) % Temp Pulse Resp BP Pulse Ox 97.7 F 67 16 128/83 99 12/19/23 16:11 12/19/23 14:04 12/19/23 14:04 12/19/23 14:04 12/19/23 14:04 Laboratory Results WBC 10.76 10^3/uL (4.4-10.8) 12/18/23 20:52 RBC 4.23 10^6/uL (3.93-5.22) 12/18/23 20:52 Hgb 11.7 g/dL (11.2-15.7) 12/18/23 20:52 Hct 35.5 % (36.0-46.0) L 12/18/23 20:52 MCV 84 fL (80-95) 12/18/23 20:52 MCH 27.7 pg (27.0-33.0) 12/18/23 20:52 MCHC 33.0 % (32.0-36.0) 12/18/23 20:52 RDW 14.0 % (11.7-14.6) 12/18/23 20:52 Plt Count 276 10^3/uL (130-400) 12/18/23 20:52 MPV 10.0 fL (8.0-11.0) 12/18/23 20:52 ABO/Rh A Positive 12/18/23 20:52 Antibody Screen NEGATIVE 12/18/23 20:52 Vital Signs Reviewed: Yes Subjective Interval history since last seen: Pt much more uncomfortable with increased pressure. Had a BM but still feels pressure. Continuing to cope well and move around. Results Hemoglobin/Hematocrit: Hgb 11.7 g/dL (11.2-15.7) 12/18/23 20:52 Hct 35.5 % (36.0-46.0) L 12/18/23 20:52 Abnormal Lab Findings: Abnormal Labs 12/18/23 20:52 Hct 35.5 L
--- NOTE | 2023-12-19 19:13 | W.PM.OBNL1 ---
Date of service: 12/19/23 Time of Service: 19:00 Informed Consent Informed Consent: Augmentation of Labor, Induction of Labor, Regional Anesthesia and Risk,Benefits,Alternatives Discussed Pelvic Exam Dilation: 7 Effacement (%): 100 station: +2 Contractions Contraction Frequency(min): q2-3 Fetus A Heart Rate Baseline: 130 Presentation: Vertex Variability: Moderate (6-25 BPM) Categories: Category I Accelerations: 15 X 15 Decelerations: None Amniotic Membrane Status: Ruptured Assessment and Plan Assessment and plan (1) Encounter for induction of labor: Status: Acute Assessment and plan: Will try turning the pitocin off to allow pt more freedom to move and see if the contractions continue regularly. Objective Abnormal lab results 12/18/23 Range/Units 20:52 Hct 35.5 L (36.0-46.0) % Temp Pulse Resp BP Pulse Ox 97.7 F 67 16 128/83 99 12/19/23 18:14 12/19/23 14:04 12/19/23 14:04 12/19/23 14:04 12/19/23 14:04 Laboratory Results WBC 10.76 10^3/uL (4.4-10.8) 12/18/23 20:52 RBC 4.23 10^6/uL (3.93-5.22) 12/18/23 20:52 Hgb 11.7 g/dL (11.2-15.7) 12/18/23 20:52 Hct 35.5 % (36.0-46.0) L 12/18/23 20:52 MCV 84 fL (80-95) 12/18/23 20:52 MCH 27.7 pg (27.0-33.0) 12/18/23 20:52 MCHC 33.0 % (32.0-36.0) 12/18/23 20:52 RDW 14.0 % (11.7-14.6) 12/18/23 20:52 Plt Count 276 10^3/uL (130-400) 12/18/23 20:52 MPV 10.0 fL (8.0-11.0) 12/18/23 20:52 ABO/Rh A Positive 12/18/23 20:52 Antibody Screen NEGATIVE 12/18/23 20:52 Vital Signs Reviewed: Yes Subjective Interval history since last seen: Pt increasingly uncomfortable but coping well in various positions. Results Hemoglobin/Hematocrit: Hgb 11.7 g/dL (11.2-15.7) 12/18/23 20:52 Hct 35.5 % (36.0-46.0) L 12/18/23 20:52 Abnormal Lab Findings: Abnormal Labs 12/18/23 20:52 Hct 35.5 L
[2023-12-20] VITALS (11 sets, daily range): BP systolic 97–128; BP diastolic 62–82; PULSE 74–97; RESP 18; TEMP 36.4–36.7
[2023-12-20] MEDS: miSOPROStol 200 MCG TAB 800 MCG VG (00:14)
--- NOTE | 2023-12-20 00:39 | OBVDS_ITS ---
Date of service: 12/19/23 Time of Service: 23:56 OB Labor/ Delivery Information Baby A Delivery Delivery Method: Spontaneaous Presentation: Vertex Vertex Position: Right Occipital Anterior Cord Description-Baby A: 3 Vessels Amniotic Fluid: [place] Tinged Estimated Blood Loss: 300 Delivery Outcome: Liveborn Note: The pt was found to have a thin anterior lip of cervix that easily reduced over the head with pushing. She pushed about 3 hours to deliver the 's head in RAYMUNDO position followed by the shoulders and the rest of the body. The baby was placed on mom's abdomen. After >1min the cord was clamped x2 and cut. Cord blood collected. The placenta delivered with gentle cord traction and fundal massage and appeared intact. Immediately after placental delivery there was increased bleeding and the fundus was boggy. Bimanual massage was performed and the patient was given 800mcg of misoprostol [place]. After that the bleeding decreased quickly. A first degree tear on the right lower labia and perineum was repaired with 3-0 vicryl after injection of lidocaine. After the repair the fundus was firm with good hemostasis. Mom and baby stable at time of note. Providers Doctor: Shira Fay Nurse: Hodan Tony Nurse: Malinda David Labor/Delivery Information Number of Babies in Womb: 1 Steroids Given: None Reason Steroids Not Administered: N/A Group Beta Strep: Negative Rubella Status: Immune Blood Type: A+ Varicella Immunity: Nonimmune Shoulder Dystocia: No Stages of Labor Onset of Labor Date: 12/19/23 ROM Baby A: 12/19/23 ROM Baby A: 17:00 Delivery Date-Baby A: 12/19/23 Delivery Time-Baby A: 23:56 Placenta Delivery Date-Baby A: 12/19/23 Placenta Delivery Time-Baby A: 00:01 Labor-Stage 3 Duration: -1435 minutes Placenta Status: Delivered Baby A Gender: Male Gestational Status: Term (39-41.6 wks) Gestational Age in Weeks/Days: 40 Weeks and 3 Days Score-1 Minute Interval(Baby A) Heart Rate-1 minute: 100 BPM or Greater Respiratory Effort- 1 minute: Spontaneous/Strong Cry Muscle Tone-1 minute: Active Movement Reflex Response-1 minute: Prompt Response Color-1 minute: Bluish Hands or Feet Total Score-1 minute: 9 Score-5 Minute Interval(Baby A) Heart Rate- 5 minute: 100 BPM or Greater Respiratory Effort-5 minute: Spontaneous/Strong Cry Muscle Tone-5 minute: Active Movement Reflex Response-5 minute: Prompt Response Color-5 minute: Bluish Hands or Feet Total Score- 5 minute: 9
[2023-12-20] MEDS: Hamamelis Leaf/Glycerin 100 EACH BOX PR (01:32)
[2023-12-20] MEDS: Dibucaine 1% 28 GM TUBE TP ×2 (01:32→18:36)
[2023-12-20] MEDS: Acetaminophen 325 MG TAB 650 MG PO ×4 (01:33→18:27)
[2023-12-20] MEDS: Ibuprofen 600 MG TAB PO ×3 (01:33→15:13)
--- NOTE | 2023-12-20 07:13 | OBPPV_ITS ---
Date of service: 12/20/23 Time of Service: 07:13 Assessment and Plan Assessment and plan (1) Normal spontaneous vaginal delivery: Status: Acute Assessment and plan: day #1 status postnormal spontaneous vaginal delivery just prior to midnight. Male infant. Desires circumcision. Breast-feeding without difficulty. Routine care. Subjective Subjective Interval history: Patient seen and examined day #1 status postnormal spontaneous vaginal delivery just before midnight. Overall she is doing well. Breast- feeding without difficulty. Appropriate mood and commentary. [place] baby status: Doing well and Nursing well Exam Physical Exam Vital signs: Temp Pulse Resp BP Pulse Ox 97.5 F L 83 18 113/72 97 12/20/23 02:34 12/20/23 02:34 12/19/23 19:20 12/20/23 02:34 12/19/23 23:39 Vital Signs Reviewed: Yes Constitutional Constitutional: no acute distress Neck Exam Neck Exam: Normal Respiratory Exam Respiratory Exam: Normal Cardiovascular Exam Cardiovascular Exam: Normal Abdominal Exam Abdomen: Tender Fundal Exam Fundus: Below Umbilicus and Firm Extremities Exam Extremity Exam: Normal Results Hemoglobin/Hematocrit: Hgb 11.7 g/dL (11.2-15.7) 12/18/23 20:52 Hct 35.5 % (36.0-46.0) L 12/18/23 20:52 Abnormal Lab Findings: Abnormal Labs 12/18/23 20:52 Hct 35.5 L
[2023-12-21] MEDS: Acetaminophen 325 MG TAB 650 MG PO ×3 (06:56→14:51)
[2023-12-21] MEDS: Ibuprofen 600 MG TAB PO ×2 (06:56→14:24)
[2023-12-21] MEDS: Docusate Sodium 100 MG CAP PO (06:56)
[2023-12-21 08:30] VITALS: BP 102/65; PULSE 82; RESP 18; TEMP 36.7; O2SAT 99
--- NOTE | 2023-12-21 09:07 | W.PM.OBPNV1 ---
Date of service: 12/21/23 Time of Service: 09:08 Assessment and Plan Assessment and plan (1) Normal spontaneous vaginal delivery: Status: Acute Assessment and plan: day #2 status postnormal spontaneous vaginal delivery. Anticipate discharge home today. Ibuprofen prescription to the pharmacy. Short follow-up in the office in 1 to 2 weeks. circumcision today per patient's request. Subjective Subjective Interval history: Patient seen and examined this morning. Overall doing well. Had little to no sleep last night due to baby cluster feeding. Lengthy conversation regarding rest, possible use of pacifier, continue breast-feeding, and anticipated discharge home today. All questions answered. [place] baby status: Doing well, Nursing well and Strong Bonding Observed Exam Physical Exam Vital signs: Temp Pulse Resp BP Pulse Ox 97.8 F 75 18 97/62 L 97 12/20/23 20:05 12/20/23 20:05 12/20/23 20:05 12/20/23 20:05 12/19/23 23:39 Vital Signs Reviewed: Yes Constitutional Constitutional: no acute distress HEENT Exam HEENT Exam: Normal Respiratory Exam Respiratory Exam: Normal Cardiovascular Exam Cardiovascular Exam: Normal Abdominal Exam Comments: Soft and nontender Fundal Exam Fundus: Below Umbilicus and Firm Results Hemoglobin/Hematocrit: Hgb 11.7 g/dL (11.2-15.7) 12/18/23 20:52 Hct 35.5 % (36.0-46.0) L 12/18/23 20:52 Abnormal Lab Findings: Abnormal Labs 12/18/23 20:52 Hct 35.5 L
--- NOTE | 2023-12-21 09:12 | DSE_ITS ---
Date of service: 12/21/23 Time of Service: 09:12 DS: Diagnosis Discharge Diagnosis (1) Normal spontaneous vaginal delivery: Status: Acute Asessment and Plan: day 2 status postnormal spontaneous vaginal delivery after induction of labor. Doing well. Discharge home. Follow-up in 1 to 2 weeks and 6 weeks. All questions answered. Prescription for ibuprofen sent to the pharmacy. Okay to discontinue Macrobid. Discharge Plan Disposition Patient Disposition: Home Condition: Good Discharge Details Reason For Visit: iup 40w2d EGA Admit Date/Time: 12/18/23 20:00 Admit Provider: Lillian Mercado Attending Provider: Lillian Mercado Primary Care Provider: Humza Rosenberg [facility] Course Hospital Course: Patient was admitted at term for labor induction. She received cervical ripening, followed by Pitocin augmentation and artificial rupture of membranes. She went on to deliver a viable male infant. She had uncomplicated delivery, and course. She was discharged home day #2 ambulating, tolerating regular diet and oral pain medication with stable vital signs. Follow-up will be in the office in 1-2 and 6 weeks. Home Meds and New Rx's Prescriptions: New ibuprofen 800 mg tablet 800 mg PO Q8H PRNQty: 60 1RF Continued Probiotic 3 billion cell capsule 3,000 mmu cells PO DAILY Rx Instructions: administer with a meal Vitamin 27 mg iron- 800 mcg tablet 1 tab PO DAILY Qty: 90 4RF Discontinued aspirin 81 mg tablet,chewable 81 mg PO DAILY Qty: 60 4RF Rx Instructions: 1 tab daily alternating with 2 tabs every other day nitrofurantoin monohyd/m-cryst [Macrobid] 100 mg capsule 100 mg PO BID Rx Instructions: must administer with a meal/food ferrous sulfate [Iron (ferrous sulfate)] 325 mg (65 mg iron) tablet 325 mg PO DAILY nitrofurantoin monohyd/m-cryst [Macrobid] 100 mg capsule 100 mg PO DAILY Qty: 60 1RF Rx Instructions: must administer with a meal/food Discharge Instructions Stand Alone Forms: BC Instructions, BC Post Vaginal Deliver Activity:: Pelvic rest Equipment/Supplies:: No Equipment Needed Diet:: As Tolerated Discharge Orders Discharge Orders: Discharge Order (Routine); Ordered 12/21/23 Ordered By: Sarai Nye OB:DS Summary Summary Vaginal Delivery Method: Spontaneaous Laceration Description: Perineal Laceration Extension: First Degree Contraception Discussed Contraception Discussed: Yes, [place] Infant Gender-Baby A: Male Status at Discharge Functional status at discharge: independent ambulation Overall status at discharge: patient is progressing back to baseline Mental Status: mental status grossly normal Speech and Movement: speech and movement normal Mood: congruent mood Affect: normal affect Quality:SDOH Health Related Social Needs: No Data to Display Exam Physical Exam Vital signs: Temp Pulse Resp BP Pulse Ox 97.8 F 75 18 97/62 L 97 12/20/23 20:05 12/20/23 20:05 12/20/23 20:05 12/20/23 20:05 12/19/23 23:39 Constitutional Comments: See physical exam from progress note dated 12/21/2023. PFSH All Active Problems Normal spontaneous vaginal delivery (Acute) Normal spontaneous vaginal delivery after labor induction 12/19/2023, male infant. Encounter for induction of labor (Acute) Nephrolithiasis (Chronic) 09/11/23. Stones sent for analysis. Maternal varicella, non-immune (Acute) Elderly primigravida (Acute) (Acute) Medical History Fever 09/12/23. 24hrs after passing kidney stones. UCx pending Surgical History No significant past surgical history Social History Smoking/Tobacco Use Status: Never Smoking risk assessment performed?: Yes Alcohol Intake: current Drug use: Never Substance use type: does not use Housing: house Do you feel safe at home: Yes Do you feel safe in your relationship?: Yes History History 1 Para 0 Hx # Term Pregnancies 0 Multiple births 0 Hx # Pregnancies 0 Ectopic pregnancies 0 AB induced 0 Hx Number of Living Children 0 AB spontaneous 0 DS: Data Vitals/I&O Vitals and I&O: Vital Signs Temperature 97.8 F 12/20/23 20:05 Temperature Source Oral 12/21/23 07:15 Pulse 75 12/20/23 20:05 Pulse Rhythm Regular 12/21/23 08:27 Respiratory Rate 18 12/20/23 20:05 Respiratory Depth Normal 12/19/23 19:22 Blood Pressure 97/62 L 12/20/23 20:05 Blood Pressure Mean 73 12/20/23 20:05 Pulse Oximetry 97 12/19/23 23:39 Pain Level 9 12/21/23 06:56 Comment . 12/21/23 07:15 Intake & Output 12/20/23 12/20/23 12/21/23 11:59 23:59 11:59 Intake Total 1248.883 / 1248.883 Output Total 1450 / 1450 Balance -201.117 / -201.117 Intake: IV 1248.883 / 1248.883 Output: Urine 1450 / 1450 Other: Urine Color Pale
[2023-12-21] MEDS: Hamamelis Leaf/Glycerin 100 EACH BOX PR ×2 (09:53→17:40)
[2023-12-21 17:05] VITALS: BP 117/75; PULSE 83; RESP 16; TEMP 36.9; O2SAT 99
[2023-12-21] MEDS: Dibucaine 1% 28 GM TUBE TP (17:40)
== END 2023-12-21 17:21 | disposition home or self-care (01) | DRG 807 ==
PROVIDERS: Admitting Provider Obstetrics & Gynecology Gynecology; PCP Family Medicine; Visit Provider Obstetrics & Gynecology Gynecology
DX: O75.89 Other specified complications of labor and delivery (principal); Z37.0 Single live birth; Z3A.40 40 weeks gestation of pregnancy; N20.0 Calculus of kidney; O70.0 First degree perineal laceration during delivery
CPT/HCPCS: 36415; 85027; 86850; 86900; 86901; 59200; J2003; J3490

== ENCOUNTER 2025-05-28 21:08 | Outpatient (REF) | payer BC, SELFPAY | END 2025-05-28 21:09 | disposition home or self-care (01) | LOC: LBN 21:08 | PROVIDERS: PCP Family Medicine; Visit Provider Physician Assistant | DX: J02.9 Acute pharyngitis, unspecified (principal) | CPT/HCPCS: 87070 ==